=== PATIENT | female | born 1990 | race Caucasian/White ===

== ENCOUNTER 2020-09-14 13:39 | Emergency (ER) | payer OTHER ==
[~2020-09-14] VITALS: Ht 167.6 cm; Wt 102.7 kg
[2020-09-14] MEDS ORDERED: BENA25CA4 PO (13:52)
[2020-09-14] MEDS ORDERED: CETI10CA2 PO (13:52)
[2020-09-14] MEDS ORDERED: PREN1CHW6 PO (13:52)
[2020-09-14] MEDS ORDERED: LEXA1TAB PO (13:52)
[2020-09-14] MEDS ORDERED: predniSONE 20 MG TAB PO ONE (16:15)
[2020-09-14] MEDS ORDERED: diphenhydrAMINE 50MG CAP PO ONE (16:25)
[2020-09-14 16:37] VITALS: BP 108/59
[2020-09-14] MEDS ORDERED: PRED20TA PO (17:22)
== END 2020-09-14 17:32 | disposition home or self-care (01) ==
LOC: M ED 13:39
DX: T78.3XXA Angioneurotic edema, initial encounter (principal); Z88.1 Allergy status to other antibiotic agents; Z88.2 Allergy status to sulfonamides; Z88.6 Allergy status to analgesic agent; Z79.899 Other long term (current) drug therapy
CPT/HCPCS: 99283; J7512